=== PATIENT | female | born 1995 | race Two or more races ===

== ENCOUNTER 2019-05-02 00:17 | Emergency (ER) | payer BC, OTHER ==
[~2019-05-02] VITALS: Ht 175.3 cm; Wt 79.4 kg
--- NOTE | 2019-05-02 01:10 | NUR ---
SABRA FROM HOME TO ER BED 16. AAOX4. NO RESP DISTRESS NOTED. AMBULATORY. C/O NECK DISCOMFORT AND HEADACHE FOR THE PAST 3 DAYS. 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 UPON ASSESSING NECK DISCOMFORT IS LOCATED ON THE POSTERIOR NECK ALONG THE CERVICAL SPIINE DOWN TO THE FIRST TORACIS SPINE, SENSATION IS REPORTED DULL 5/10. HEADACHE IS REPORT AT THE BACK OF THE HEAD 5/10. NECK ROM IS WNL. PT REPORTS TAKING NAPROXEN WHICH HELPS BUT DID NOT TAKE ANY TODAY. AWAITING MD FOR FLAVIO
--- NOTE | 2019-05-02 01:40 | NUR ---
Patient discharged to home in stable condition. Written and verbal after care instructions given. Patient verbalizes understanding of instruction. Pt ambulatory with a steady gait
[2019-05-02 01:41] VITALS: BP 125/80
== END 2019-05-02 01:41 | disposition home or self-care (01) ==
LOC: ER 00:20
DX: S16.1XXA Strain of muscle, fascia and tendon at neck level, initial encounter (principal); J45.909 Unspecified asthma, uncomplicated; X58.XXXA Exposure to other specified factors, initial encounter; Y93.89 Activity, other specified; Y92.89 Other specified places as the place of occurrence of the external cause; Y99.8 Other external cause status